=== PATIENT | male | born 1985 | race African-American/Black ===

== ENCOUNTER 2017-02-22 14:06 | Emergency (ER) | payer SELFPAY ==
[2017-02-22] MEDS ORDERED: Ketorolac Tromethamine 30 MG/ML VIAL ONE (14:28)
== END 2017-02-22 15:07 | disposition home or self-care (01) ==
LOC: ERS 14:06
DX: J30.1 Allergic rhinitis due to pollen (principal); F17.290 Nicotine dependence, other tobacco product, uncomplicated
CPT/HCPCS: 87081; 87430; 96372; J1885

== ENCOUNTER 2017-04-30 12:41 | Emergency (ER) | payer SELFPAY | END 2017-04-30 14:10 | disposition home or self-care (01) | LOC: ERS 12:41 | DX: R55 Syncope and collapse (principal); F17.210 Nicotine dependence, cigarettes, uncomplicated | CPT/HCPCS: 36416; 93005 ==